=== PATIENT | male | born 1965 | race Caucasian/White ===

== ENCOUNTER 2017-11-30 12:40 | Emergency (ER) | payer MEDICAID, OTHER, SELFPAY ==
[2017-11-30] MEDS ORDERED: MORPHINE 10 MG/ML SYRINGE ONE (14:37)
[2017-11-30] MEDS ORDERED: Ondansetron ODT 4 MG TAB ONE (14:37)
--- NOTE | 2017-11-30 15:35 | RAD ---
FOUR VIEWS RIGHT KNEE: CLINICAL HISTORY: Fall with right knee pain. FINDINGS: There is partially imaged hardware at the right tibia with medially located metallic sideplate and tr aversing screws. There is prominent heterotopic density about the knee anteriorly. Enthesophyte for mation of the patella is seen. No obvious acute fracture. No definite perihardware lucency. There is mild osteophytosis. IMPRESSION: No acute osseous abnormality of the postoperative right knee identified. POS: [facility]
--- NOTE | 2017-11-30 15:38 | RAD ---
RIGHT HIP 2 VIEWS: HISTORY: Fall. COMPARISON: None. FINDINGS: Right total hip arthropathy with anterior and posterior column plate and screw fixation as well as pl ate and screw fixation over the superior pubic ramus and likely the pubic symphysis. No evidence of hardware fracture. Mild heterotopic ossification. IMPRESSION: 1. No evidence of hardware failure. 2. The medial screw of the right superior pubic ramus is backing out a few millimeters. POS: [facility]
== END 2017-11-30 14:50 | disposition home or self-care (01) ==
LOC: EDBD 12:40 → MADERS 12:40
DX: M25.551 Pain in right hip (principal); I10 Essential (primary) hypertension; F32.9 Major depressive disorder, single episode, unspecified; Z79.899 Other long term (current) drug therapy
CPT/HCPCS: 96372; J2270; Q0162

== ENCOUNTER 2017-12-04 20:24 | Emergency (ER) | payer OTHER ==
[2017-12-04] MEDS ORDERED: Magnesium Sulfate 2 GM/NS 0.9% 50 ML BAG ONE (21:16)
[2017-12-04] MEDS ORDERED: methylPREDNISolone Sod Succ/PF 125 MG/2 ML VIAL ONE (21:16)
[2017-12-04] MEDS ORDERED: Dexamethasone 10 MG/ML VIAL ONE (21:16)
== END 2017-12-04 22:05 | disposition home or self-care (01) ==
LOC: MADERS 20:24
DX: J45.909 Unspecified asthma, uncomplicated (principal); F32.9 Major depressive disorder, single episode, unspecified; F17.210 Nicotine dependence, cigarettes, uncomplicated; I10 Essential (primary) hypertension
CPT/HCPCS: 96365; 96375; J1100; J2930; J3475; J7620